=== PATIENT | female | born 1975 | race Caucasian/White ===

== ENCOUNTER 2016-12-05 21:03 | Inpatient (IN) | END 2016-12-10 18:05 | disposition home or self-care (01) | DRG 354 | DX: K43.6 Other and unspecified ventral hernia with obstruction, without gangrene (principal); N18.4 Chronic kidney disease, stage 4 (severe); F15.20 Other stimulant dependence, uncomplicated; G25.81 Restless legs syndrome; M06.9 Rheumatoid arthritis, unspecified; E66.9 Obesity, unspecified; F41.9 Anxiety disorder, unspecified; F32.9 Major depressive disorder, single episode, unspecified; F14.10 Cocaine abuse, uncomplicated; F10.10 Alcohol abuse, uncomplicated; F12.20 Cannabis dependence, uncomplicated; Z68.34 Body mass index [BMI] 34.0-34.9, adult; Z59.0 Homelessness; Z98.84 Bariatric surgery status; Z87.440 Personal history of urinary (tract) infections; Z87.442 Personal history of urinary calculi ==

== ENCOUNTER 2016-12-14 15:43 | Emergency (ER) | payer SELFPAY ==
[~2016-12-14] VITALS: Ht 162.6 cm; Wt 95.5 kg
[~2016-12-14 15:43] MED LIST: ACET325T33 PO; ALBU8.5H3 INH; ALPR1TAB7 PO; BICS PO; BUSP10TA2 PO; DOCU-144 PO; GABA300C16 PO; HYDR200T5 PO; IMIT25 PO; LID50L4 MM; Oxycodone/Acetamin (5/325) PO; PRED5 PO; QUET100T PO; QUET25TA26 PO; TAMS-14 PO; VENL150C PO
[2016-12-14 16:05] VITALS: Ht 162.6 cm; Wt 95.5 kg
== END 2016-12-14 21:49 | disposition left against medical advice (07) ==
LOC: E/R 15:43
DX: Z53.21 Procedure and treatment not carried out due to patient leaving prior to being seen by health care provider (principal)

== ENCOUNTER 2017-04-08 09:38 | Inpatient (IN) | payer OTHER ==
[~2017-04-08] VITALS: Ht 160 cm; Wt 84.0 kg
[~2017-04-08 09:38] MED LIST changes: -LID50L4 MM; +LIDO40SO8 MM
[2017-04-08] MEDS ORDERED: morphine 4 MG/ML VIAL IV STA ×2 (10:21→15:35)
[2017-04-08] MEDS ORDERED: ONDANSETRON 4 MG INJ IV STA (10:21)
[2017-04-08] MEDS ORDERED: DIPHENHYDRAMINE 50 MG INJ IV ONE (11:00)
[2017-04-08 11:05] LABS: ADD SCAN DIFF NO
[2017-04-08 11:08] LABS: ADD UMIC YES; BASOPHILS % 0.7 % (0.0-2.0); EOSINOPHILS # 0.1 10^3/ul (0.0-0.5); EOSINOPHILS % 2.4 % (0.0-7.0); HEMATOCRIT 34.7 % (37.0-47.0); MEAN CORPUSCULAR HEMOGLOBIN 27.8 pg (29.0-33.0); MEAN CORPUSCULAR HGB CONC 31.7 g/dl (32.0-37.0); MEAN CORPUSCULAR VOLUME 87.6 fl (82.0-101.0); MEAN PLATELET VOLUME 11.1 fl (7.4-10.4); MONOCYTE # 0.4 10^3/ul (0.3-0.9); NEUTROPHIL # 3.3 10^3/ul (1.6-7.5); NEUTROPHILS % 56.7 % (39.0-77.0); PLATELET COUNT 316 10^3/UL (140-415); RED BLOOD COUNT 3.96 10^6/ul (4.20-5.40); RED CELL DISTRIBUTION WIDTH 14.7 % (11.5-14.5); UR BILIRUBIN (Dip) NEGATIVE (NEGATIVE); UR BLOOD (Dip) 1+ (NEGATIVE); UR CLARITY CLEAR (CLEAR); UR COLOR LT. YELLOW (YELLOW); UR GLUCOSE (Dip) NEGATIVE (NEGATIVE); UR KETONES (Dip) NEGATIVE (NEGATIVE); UR LEUKOCYTE ESTERASE (Dip) 2+ (NEGATIVE); UR NITRITE (Dip) NEGATIVE (NEGATIVE); UR TOTAL PROTEIN (Dip) NEGATIVE (NEGATIVE); UR UROBILINOGEN (Dip) 0.2 E.U./dL (0.1-1.0); WHITE BLOOD COUNT 5.8 10^3/ul (4.8-10.8)
[2017-04-08 11:15] LABS: UR BACTERIA MODERATE /HPF (NONE SEEN); UR SQUAMOUS EPITHELIAL CELL OCCASIONAL /HPF (FEW); URINE RBCS 0-2 /HPF (0)
--- NOTE | 2017-04-08 11:22 | RADRPT ---
PROCEDURE: XR Chest AP portable CLINICAL INDICATION: Short of breath TECHNIQUE: An AP portable radiograph of the chest was submitted. COMPARISON: 12/22/2015 FINDINGS: Support Hardware: None Cardiovascular: The cardiovascular silhouette appears unremarkable. Lung Baron: The lung baron appear clear with no nodule, alveolar infiltrate, or interstitial promi nence evident. Pleural Spaces: No pneumothorax or pleural effusion is identified. Osseous Structures: The osseous structures appear intact. Soft Tissues: The soft tissues appear generous. IMPRESSION: Stable and unremarkable portable chest. Physician Melinda Date Time Electronically viewed and signed by Physician Melinda on 04/08/2017 11:21 /
--- NOTE | 2017-04-08 11:23 | RADRPT ---
PROCEDURE: XR Left Hip CLINICAL INDICATION: Pain, history of RA TECHNIQUE: AP and frog-leg views were submitted. COMPARISON: None FINDINGS: Osseous structures: appear well mineralized and intact with no fracture or destructive process iden tified. Joint spaces: The hip joint is well maintained there is no distension of the joint capsule. Soft tissues: appear unremarkable. IMPRESSION: Unremarkable left hip. Physician Melinda Date Time Electronically viewed and signed by Sharon Cobb Physician on 04/08/2017 11:22 /
[2017-04-08 11:25] LABS: ALBUMIN 4.1 g/dl (3.3-4.9); ALBUMIN/GLOBULIN RATIO 1.24; CALCIUM 8.3 mg/dl (8.4-10.2); CREATININE 3.48 mg/dl (0.44-1.00); POTASSIUM 4.6 mmol/L (3.5-5.1); TOTAL PROTEIN 7.4 g/dl (6.1-8.1)
[2017-04-08] MEDS ORDERED: SOD CHLORIDE 0.9% 1,000 ML IV ONE ×2 (11:56→14:00)
[2017-04-08] MEDS ORDERED: CEFTRIAXONE 1 GM/50 ML (PMX) 50 ML IVPB ONE (12:00)
[2017-04-08] MEDS ORDERED: FENTAnyl 50 MCG/ML VIAL IV ONE (12:30)
--- NOTE | 2017-04-08 16:16 | RADRPT ---
PROCEDURE: CT Abdomen and Pelvis without contrast. CLINICAL INDICATION: Abdominal and pelvic pain. Left hip pain. TECHNIQUE: CT scan of the abdomen and pelvis without contrast was performed. Coronal and sagittal reformatted images were obtained from the axial source images. Images were reviewed on a high-resolu [employer] PACS workstation. Total exam DLP is 991.48 mGy-cm. CTDIvol is 17.87 mGy. One or more of the f ollowing dose reduction techniques were used: Automated exposure control, adjustment of the mA and/o r kV according to patient size, use of iterative reconstruction technique. COMPARISON: CT scan of the abdomen and pelvis dated 06/15/2016. FINDINGS: The lung bases are normal. There is no pleural effusion. The liver is normal in size and attenuation. There is no focal hepatic lesion. The gallbladder is surgically absent with clips noted in the gallbladder bed. Surgical clips are al so present from prior gastric surgery and prior left upper quadrant bowel surgery. The spleen is normal in size. There is no focal splenic lesion. Both adrenals are normal with no enlargement or mass. The pancreas is unremarkable with no mass or evidence of pancreatitis. Both kidneys are atrophic. There is no renal mass, hydronephrosis, or calculus. The abdominal aorta is not dilated. There is no retroperitoneal lymphadenopathy or mass. There is no pelvic lymphadenopathy or mass. The bladder and distal ureters are normal. There is no free fluid or free air. The bowel and mesentery are otherwise normal. The appendix is well seen and appears normal. There is diffuse sclerosis throughout the osseous structures which may indicate renal osteodystrophy . IMPRESSION: 1. Status post cholecystectomy. 2. Prior gastric and left upper quadrant bowel surgery. 3. Atrophic kidneys. 4. Possible renal osteodystrophy. 5. Otherwise unremarkable study. RPTAT: QQ .Travis Berrios MD, MD Date Time Electronically viewed and signed by .Travis Berrios MD, on 04/08/2017 16:16 .R/
[2017-04-08 17:04] VITALS: PULSE 62; TEMP 98.6
[2017-04-08] MEDS ORDERED: HYDROCODONE/APAP (5/325) TAB PO ONE (17:30)
[2017-04-08] MEDS ORDERED: ONDANSETRON 4 MG INJ IV PRN (17:30)
[2017-04-08] MEDS ORDERED: ACETAMINOPHEN 325 MG TAB PO PRN (17:30)
--- NOTE | 2017-04-08 18:17 | ERA ---
ER Documentation Chief Complaint Date/Time DATE: 04/08/17 TIME: 18:09 Chief Complaint ABD PAIN WITH GENERALIZED BODY PAIN HPI This 41-year-old female comes in for abdominal pain for the last 2 days ago she has chronic abdominal pain as well. She requests very strong pain medicine. Had chills but denies fevers. Does have nausea. Has a history of gastric bypass surgery as well as a recent small bowel obstruction. ROS All systems reviewed and are negative except as per history of present illness. Medications Home Meds Active Scripts [Oxycodone/Acetamin (5/325)] 1 TAB TAB No Conflict Check, 1 TAB PO Q4H Y for PAIN, #30 Prov:ELPIDIO ECKERT 12/10/16 Acetaminophen* (Tylenol*) 325 Mg Tablet, 2 TAB PO Q8 Y for PAIN AND OR ELEVATED TEMP, #20 TAB Prov:NATHEN SOLORIO MD 08/17/16 Docusate Sodium* (Colace*) 100 Mg Capsule, 100 MG PO BID, #30 CAP Prov:MINE KATZ 06/15/16 Reported Medications Lidocaine 4% Topical (Lidocaine HCl) 4%-50 Ml Soln, 1 APPLIC MM, BOT 12/06/16 Quetiapine Fumarate* (Seroquel*) 100 Mg Tablet, 100 MG PO HS, #30 TAB 12/06/16 Quetiapine Fumarate* (Seroquel*) 25 Mg Tablet, 25 MG PO DAILY Y for ANXIETY, # 30 TAB 12/06/16 Buspirone Hcl* (Buspirone Hcl*) 10 Mg Tab, 10 MG PO BID, TAB 12/06/16 Tamsulosin Hcl* (Flomax*) 0.4 Mg Cap.er.24h, 0.2 MG PO DAILY, CAP 12/06/16 Prednisone* (Prednisone*) 5 Mg Tab, 5 MG PO DAILY, TAB 12/06/16 Sumatriptan Succinate* (Imitrex*) 25 Mg Tablet, 25 MG PO BID Y for MIGRAINE HEADACHE, TAB May repeat after 2 hours if needed; MAX 200 mg/24 hours 06/03/16 Venlafaxine Hcl* (Effexor XR*) 150 Mg Cap.sr.24h, 150 MG PO DAILY, CAP 06/03/16 Gabapentin* (Gabapentin*) 300 Mg Capsule, 300 MG PO BID, #60 CAP 06/03/16 Alprazolam* (Alprazolam*) 1 Mg Tablet, 1 MG PO BID Y for ANXIETY, TAB 06/03/16 Hydroxychloroquine Sulfate* (Plaquenil*) 200 Mg Tab, 200 MG PO DAILY, TAB 02/20/15 Citric Acid/Sodium Citrate* (Bicitra* (PEDIATRIC)) 1 Meq/Ml Soln, 30 MEQ PO BID for 30 Days, BOTTLE 02/20/15 Albuterol Sulfate* (Proair HFA*) 8.5 Gm Hfa.aer.ad, 2 PUFF INH Q4-6 HOURS Y for WHEEZING AND SOB, INH 02/20/15 Allergies Allergies: Coded Allergies: No Known Allergies (Verified Allergy, Unknown, 08/17/16) PMhx/Soc History of Surgery: Yes (; gastric bypass; bladder Sx; lithotripsy) Anesthesia Reaction: No Hx Neurological Disorder: Yes (anxiety, panic attack, depression) Hx Respiratory Disorders: Yes (ASTHMA) Hx Cardiac Disorders: No (tachycardia when stressed) Hx Psychiatric Problems: Yes (depression) Hx Miscellaneous Medical Probl: Yes (RHEUMATOID ARTHRITIS) Hx Alcohol Use: No Hx Substance Use: Yes (CANNABIS) Hx Tobacco Use: No Smoking Status: Never smoker Physical Exam Vitals Vital Signs Date Time Temp Pulse Resp B/P Pulse Ox O2 Delivery O2 Flow Rate FiO2 04/08/17 17:04 98.6 62 18 141/86 99 04/08/17 15:04 98.9 68 18 146/80 99 04/08/17 09:39 98.9 102 18 149/88 99 Physical Exam Const: [] Mild distress Head: Atraumatic Eyes: Normal Conjunctiva ENT: Normal External Ears, Nose and Mouth. Neck: Full range of motion..~ No meningismus. Resp: Clear to auscultation bilaterally Cardio: Regular rate and rhythm, no murmurs Abd: Soft, mild generalized abdominal pain without guarding or rebound, non distended. Normal bowel sounds Skin: No petechiae or rashes Back: No midline or flank tenderness Ext: No cyanosis, or edema Neur: Awake and alert and oriented 3, no focal depth Psych: Normal Mood and Affect Result Diagram: 04/08/17 1040 04/08/17 1040 Results 24 hrs Laboratory Tests Test 04/08/17 10:40 White Blood Count 5.810^3/ul Red Blood Count 3.9610^6/ul Hemoglobin 11.0g/dl Hematocrit 34.7% Mean Corpuscular Volume 87.6fl Mean Corpuscular Hemoglobin 27.8pg Mean Corpuscular Hemoglobin Concent 31.7g/dl Red Cell Distribution Width 14.7% Platelet Count 85369^3/UL Mean Platelet Volume 11.1fl Neutrophils % 56.7% Lymphocytes % 34.0% Monocytes % 6.0% Eosinophils % 2.4% Basophils % 0.7% Nucleated Red Blood Cells % 0.0/100WBC Neutrophils # 3.310^3/ul Lymphocytes # 2.010^3/ul Monocytes # 0.410^3/ul Eosinophils # 0.110^3/ul Basophils # 0.010^3/ul Nucleated Red Blood Cells # 0.010^3/ul Urine Color LT. YELLOW Urine Clarity CLEAR Urine pH 5.5 Urine Specific [place] <=1.005 Urine Ketones NEGATIVE Urine Nitrite NEGATIVE Urine Bilirubin NEGATIVE Urine Urobilinogen 0.2 E.U./dL Urine Leukocyte Esterase 2+ Urine Microscopic RBC 0-2/HPF Urine Microscopic WBC 5-10/HPF Urine Squamous Epithelial Cells OCCASIONAL/HPF Urine Bacteria MODERATE/HPF Urine Hemoglobin 1+ Urine Glucose NEGATIVE% Urine Total Protein NEGATIVE Sodium Level 145mmol/L Potassium Level 4.6mmol/L Chloride Level 112mmol/L Carbon Dioxide Level 18mmol/L Anion Gap 20 Blood Urea Nitrogen 32mg/dl Creatinine 3.48mg/dl Glucose Level 75mg/dl Calcium Level 8.3mg/dl Total Bilirubin 0.0mg/dl Direct Bilirubin 0.00mg/dl Indirect Bilirubin 0.0mg/dl Aspartate Amino Transf (AST/SGOT) 29IU/L Alanine Aminotransferase (ALT/SGPT) 33IU/L Alkaline Phosphatase 158IU/L Total Protein 7.4g/dl Albumin 4.1g/dl Globulin 3.30g/dl Albumin/Globulin Ratio 1.24 Lipase 141U/L Current Medications Medications (Trade) Dose Ordered Sig/Brian Route PRN Reason Start Time Stop Time Status Last Admin Dose Admin Morphine Sulfate (morphine) 4 mg ONCE STAT IV 04/08/17 10:21 04/08/17 10:25 DC 04/08/17 10:47 Ondansetron HCl (Zofran Inj) 4 mg ONCE STAT IV 04/08/17 10:21 04/08/17 10:25 DC 04/08/17 10:47 Diphenhydramine HCl 25 mg 25 mg ONCE ONCE IV 04/08/17 11:00 04/08/17 11:01 DC 04/08/17 11:13 Ceftriaxone Sodium 50 ml @ 100 mls/hr ONCE ONCE IVPB 04/08/17 12:00 04/08/17 12:29 DC 04/08/17 12:00 Sodium Chloride (NS) 1,000 ml @ 0 mls/hr Q0M ONCE IV 04/08/17 11:56 04/08/17 11:57 DC 04/08/17 11:56 Fentanyl 50 mcg 50 mcg ONCE ONCE IV 04/08/17 12:30 04/08/17 12:31 DC 04/08/17 13:02 Sodium Chloride (NS) 1,000 ml @ 1,000 mls/hr Q1H ONCE IV 04/08/17 14:00 04/08/17 14:59 DC 04/08/17 14:40 Morphine Sulfate (morphine) 4 mg ONCE STAT IV 04/08/17 15:35 04/08/17 15:36 DC 04/08/17 15:54 Acetaminophen/ Hydrocodone Bitart (Immaculata (5/325)) 2 tab ONCE ONCE PO 04/08/17 17:30 04/08/17 17:31 DC 04/08/17 17:46 Ondansetron HCl (Zofran Inj) 4 mg BRIDGE ORDER PRN IV NAUSEA AND/OR VOMITING 04/08/17 17:30 04/09/17 17:29 04/08/17 17:47 Acetaminophen (Tylenol Tab) 650 mg ER BRIDGE PRN PO MILD PAIN/FEVER 04/08/17 17:30 04/09/17 17:29 Procedures/MDM Acute kidney injury on top of chronic renal failure with urinary tract infection and abdominal pain. Do believe she may have a narcotic dependence that she would say that each dose of narcotic pain medication wore off a few minutes after it was given and she would require more. Appears completely comfortable in the room. Do believe she is to be admitted for protection of her kidneys as her previous creatinine even during small bowel obstruction was approximately 2.6 baseline is now 3.5 in order to protect her kidneys from complete renal failure I think she should be admitted for fluid hydration, treatment of UTI, and nephrology consult. She was given a gram of Rocephin in the emergency room and urine culture was taken to spoke with Dr. Bullock who admitting the patient to the medical surgical floor. CT abdomen pelvis interpretation: No definite acute process. Patient does have renal stones and atrophic kidneys, evidence of gastric bypass. I see no obstruction, no free air, no abnormal fat stranding, no fractures Departure Diagnosis: Primary Impression: Acute on chronic renal failure Additional Impression: Urinary tract infection Condition: Stable SONIA DEAN DO Apr 08, 2017 18:17
[2017-04-08 18:38] VITALS: BP 144/84; RESP 20
--- NOTE | 2017-04-08 19:15 | HP ---
Date/Time of Note Date/Time of Note DATE: 04/08/17 TIME: 19:14 Assessment/Plan VTE Prophylaxis VTE Prophylaxis Intervention: SCD's Assessment/Plan Assessment/Plan 41 yo F with right-sided abdominal pain asking for stronger pain medications with the followin. Possible right-sided pyelonephritis likely mild 2. Acute on chronic kidney disease stage III 3. Pain medication seeking behavior, with patient asking for stronger opioids by name, wanting pain medication mixed with intravenous Benadryl 4. History of chronic kidney disease stage III to IV. 5. History of prior urinary tract infections. 6. Prior history of kidney stones. 7. History of IV drug abuse in the past. 8. Restless leg syndrome. 9. History of rheumatoid arthritis. PLAN: Patient is being mainly admitted for management of her renal failure with hydration and empiric antibiotics. We will also send a urine culture. Patient is being treated with non narcotic IV pain meds as continued on her home percocet. Patient is refusing IV pain meds because they are non narcotic. Patient does not clinically look uncomfortable. If pain mgt remains an issue, she will benefit from pain mgt consult. Further interventions per clinical course Continue all other supportive care Prophylaxis: SCDS / Pepcid HPI/ROS Admit Date/Time Admit Date/Time Apr 08, 2017 at 17:31 Hx of Present Illness PRESENTING COMPLAINT: R sided abd pain HISTORY OF PRESENTING COMPLAINT:This is a 41-year-old female with a past medical history of chronic kidney disease stage III, illicit drug use, who presents to the emergency room with complaints of right-sided abdominal pain as well as a left hip pain. The patient has also had multiple urinary tract infection in the past I was concerned that she might have another. She has had no fever, no chest pain, no shortness of breath, no palpitations. There has been no passing out episodes, no headaches, no visual changes, no sore throat. ROS 12 point review if systems was done and pertinent findings are as noted. PMH/Family/Social Past Medical History History of chronic kidney disease stage III to IV. History of prior urinary tract infections. Prior history of kidney stones. History of IV drug abuse in the past. Restless leg syndrome. History of rheumatoid arthritis. Past Surgical History * Gastric bypass * multiple lithotripsises Family History Significant Family History: no pertinent family hx Social History Smoking Status: Never smoker Exam/Review of Systems Vital Signs Vitals VS - Last 72 Hours, by Label Date Time Temp Pulse Resp B/P Pulse Ox O2 Delivery O2 Flow Rate FiO2 04/09/17 07:35 97.6 69 18 127/68 99 04/09/17 02:00 97.7 59 18 111/66 100 04/08/17 20:11 98.0 65 18 130/81 100 04/08/17 18:38 97.7 65 20 144/84 99 04/08/17 17:04 98.6 62 18 141/86 99 04/08/17 15:04 98.9 68 18 146/80 99 04/08/17 09:39 98.9 102 18 149/88 99 Vital Signs Date Time Temp Pulse Resp B/P Pulse Ox O2 Delivery O2 Flow Rate FiO2 04/08/17 18:38 97.7 65 20 144/84 99 Exam Exam Constitutional: alert, oriented Head: atraumatic, normocephalic Neck: non-tender, supple Respiratory: clear to auscultation Cardiovascular: regular rate and rhythm Gastrointestinal: S/ NT / ND / +BS /no flank pain or tenderness Extremities: no edema, good radial pulses Labs Result Diagram: 04/08/17 1040 04/08/17 1040 Procedures Procedures PROCEDURE: CT Abdomen and Pelvis without contrast. CLINICAL INDICATION: Abdominal and pelvic pain. Left hip pain. TECHNIQUE: CT scan of the abdomen and pelvis without contrast was performed. Coronal and sagittal reformatted images were obtained from the axial source images. Images were reviewed on a high-resolution PACS workstation. Total exam DLP is 991.48 mGy-cm. CTDIvol is 17.87 mGy. One or more of the following dose reduction techniques were used: Automated exposure control, adjustment of the mA and/or kV according to patient size, use of iterative reconstruction technique. COMPARISON: CT scan of the abdomen and pelvis dated 06/15/2016. FINDINGS: The lung bases are normal. There is no pleural effusion. The liver is normal in size and attenuation. There is no focal hepatic lesion. The gallbladder is surgically absent with clips noted in the gallbladder bed. Surgical clips are also present from prior gastric surgery and prior left upper quadrant bowel surgery. The spleen is normal in size. There is no focal splenic lesion. Both adrenals are normal with no enlargement or mass. The pancreas is unremarkable with no mass or evidence of pancreatitis. Both kidneys are atrophic. There is no renal mass, hydronephrosis, or calculus. The abdominal aorta is not dilated. There is no retroperitoneal lymphadenopathy or mass. There is no pelvic lymphadenopathy or mass. The bladder and distal ureters are normal. There is no free fluid or free air. The bowel and mesentery are otherwise normal. The appendix is well seen and appears normal. There is diffuse sclerosis throughout the osseous structures which may indicate renal osteodystrophy. IMPRESSION: 1. Status post cholecystectomy. 2. Prior gastric and left upper quadrant bowel surgery. 3. Atrophic kidneys. 4. Possible renal osteodystrophy. 5. Otherwise unremarkable study. RPTAT: QQ .Travis Berrios MD, MD Date Time Electronically viewed and signed by .Travis Berrios MD, MD on 04/08/2017 16:16 .R/ PROCEDURE: XR Chest AP portable CLINICAL INDICATION: Short of breath TECHNIQUE: An AP portable radiograph of the chest was submitted. COMPARISON: 12/22/2015 FINDINGS: Support Hardware: None Cardiovascular: The cardiovascular silhouette appears unremarkable. Lung Morrison: The lung morrison appear clear with no nodule, alveolar infiltrate, or interstitial prominence evident. Pleural Spaces: No pneumothorax or pleural effusion is identified. Osseous Structures: The osseous structures appear intact. Soft Tissues: The soft tissues appear generous. IMPRESSION: Stable and unremarkable portable chest. Physician Melnida Date Time Electronically viewed and signed by Sharon Cobb Physician on 04/08/2017 11:21 MONSE FRIAS Apr 08, 2017 19:15
[2017-04-08 19:30] VITALS: Ht 160 cm; Wt 84.0 kg
[2017-04-08] MEDS ORDERED: OXYCODONE/ACETAMINOPHEN (5/325) TAB PO PRN (19:30)
[2017-04-08] MEDS ORDERED: hydrOXYzine HCL 25 MG TAB PO PRN ×2 (19:30→21:00)
[2017-04-08] MEDS ORDERED: ALPRAZOLAM 1 MG TAB PO PRN (19:30)
[2017-04-08] MEDS ORDERED: ALBUTEROL 18 GM INHALER INH PRN (19:30)
[2017-04-08] MEDS ORDERED: SUMATRIPTAN 25 MG TAB PO PRN (19:30)
[2017-04-08 20:11] VITALS: BP 130/81; RESP 18
[2017-04-08] MEDS ORDERED: ACETAMINOPHEN 1000MG/100ML IV 100 ML IVPB SCH (21:00)
[2017-04-08] MEDS ORDERED: BUSPIRONE 10 MG TAB PO SCH ×2 (21:00)
[2017-04-08] MEDS ORDERED: CITRIC ACID/NA CITRATE 30 ML CUP PO SCH (21:00)
[2017-04-08] MEDS ORDERED: TAMSULOSIN (SR) 0.4 MG CAP PO SCH (21:00)
[2017-04-08] MEDS ORDERED: GABAPENTIN 300 MG CAP PO SCH (21:00)
[2017-04-08] MEDS ORDERED: QUETIAPINE 100 MG TAB PO SCH (21:00)
[2017-04-08] MEDS ORDERED: DOCUSATE SODIUM 100 MG CAP PO SCH (21:00)
[2017-04-08] MEDS ORDERED: LIDOCAINE 5% 35 GM OINT TOP PRN (21:00)
[2017-04-08] MEDS ORDERED: morphine 2 MG INJ IV PRN (21:00)
[2017-04-08] MEDS ORDERED: OXYCODONE/ACETAMINOPHEN (10/325) TAB PO PRN (23:30)
[2017-04-08] MEDS ORDERED: HYDROCORTISONE 1% 28.35 GM OINT TOP PRN (23:30)
[2017-04-09 02:00] VITALS: BP 111/66; RESP 18
[2017-04-09] MEDS ORDERED: CEPH-442 PO (04:33)
[2017-04-09] MEDS ORDERED: SODI650T PO (04:33)
[2017-04-09] MEDS ORDERED: UDATA PO (04:33)
[2017-04-09] MEDS ORDERED: OXYC-209 PO (04:33)
[2017-04-09 07:35] VITALS: BP 127/68; RESP 18
[2017-04-09] MEDS ORDERED: SOD CHLORIDE 0.9% 1,000 ML IV SCH (09:00)
[2017-04-09] MEDS ORDERED: HYDROXYCHLOROQUINE 200 MG TAB PO SCH (09:00)
[2017-04-09] MEDS ORDERED: VENLAFAXINE (XR) 75 MG CAP PO SCH (09:00)
[2017-04-09] MEDS ORDERED: predniSONE 5 MG TAB PO SCH (09:00)
--- NOTE | 2017-04-09 09:46 | DS ---
Date/Time of Note Date/Time of Note DATE: 04/09/17 TIME: 09:43 Discharge Summary Admission/Discharge Info Admit Date/Time Apr 08, 2017 at 17:31 Discharge Date/Time Patient Condition: Guarded Hx of Present Illness PRESENTING COMPLAINT: R sided abd pain HISTORY OF PRESENTING COMPLAINT:This is a 41-year-old female with a past medical history of chronic kidney disease stage III, illicit drug use, who presents to the emergency room with complaints of right-sided abdominal pain as well as a left hip pain. The patient has also had multiple urinary tract infection in the past I was concerned that she might have another. She has had no fever, no chest pain, no shortness of breath, no palpitations. There has been no passing out episodes, no headaches, no visual changes, no sore throat. Hospital Course Pt admitted for abd pain 2/2 possible UTI v pyelo, started on empiric rocepin while cultures in process. Pt demanded IV narcotics. When offered multiple alternatives including PO narcotics, topical lidocaine, pt eloped. I did not have the opportunity to review risks of leaving without completion of workup ( mainly identification of pathogen in pt's urine) or arrange for any post discharge f/u as I was notified of pt's elopement after she had already departed Home Meds Active Scripts Acetaminophen* (Tylenol*) 325 Mg Tablet, 2 TAB PO Q8 Y for PAIN AND OR ELEVATED TEMP, #20 TAB Prov:NATHEN SOLORIO MD 08/17/16 Reported Medications Hydroxyzine Hcl* (Atarax*) 2 Mg/Ml Syrup, 25 MG PO Q4 Y for ITCHING, ML 04/09/17 Cephalexin* (Keflex*) 250 Mg Capsule, 250 MG PO DAILY, #28 CAP 04/09/17 Sodium Bicarbonate (Na Bicarbonate) 650 Mg Tab, 650 MG PO BID, #4 TAB 04/09/17 Oxycodone HCl/Acetaminophen (Percocet 10-325 mg Tablet) 1 Each Tablet, 1 EACH PO Q4 for PAIN, TAB 04/09/17 Lidocaine 4% Topical (Lidocaine HCl) 4%-50 Ml Soln, 1 APPLIC MM, BOT 12/06/16 Quetiapine Fumarate* (Seroquel*) 100 Mg Tablet, 100 MG PO HS, #30 TAB 3/14/17 Buspirone Hcl* (Buspirone Hcl*) 10 Mg Tab, 10 MG PO TID, TAB 12/06/16 Prednisone* (Prednisone*) 5 Mg Tab, 5 MG PO DAILY, TAB 12/06/16 Venlafaxine Hcl* (Effexor XR*) 150 Mg Cap.sr.24h, 150 MG PO DAILY, CAP 06/03/16 Hydroxychloroquine Sulfate* (Plaquenil*) 200 Mg Tab, 200 MG PO DAILY, TAB 02/20/15 Albuterol Sulfate* (Proair HFA*) 8.5 Gm Hfa.aer.ad, 2 PUFF INH Q4-6 HOURS Y for WHEEZING AND SOB, INH 02/20/15 Discontinued Reported Medications Quetiapine Fumarate* (Seroquel*) 25 Mg Tablet, 25 MG PO DAILY Y for ANXIETY, # 30 TAB 12/06/16 Tamsulosin Hcl* (Flomax*) 0.4 Mg Cap.er.24h, 0.2 MG PO DAILY, CAP 12/06/16 Gabapentin* (Gabapentin*) 300 Mg Capsule, 300 MG PO BID, #60 CAP 06/03/16 Alprazolam* (Alprazolam*) 1 Mg Tablet, 1 MG PO BID Y for ANXIETY, TAB 06/03/16 Citric Acid/Sodium Citrate* (Bicitra* (PEDIATRIC)) 1 Meq/Ml Soln, 30 MEQ PO BID for 30 Days, BOTTLE 02/20/15 Sumatriptan Succinate* (Imitrex*) 25 Mg Tablet, 25 MG PO BID Y for MIGRAINE HEADACHE, TAB May repeat after 2 hours if needed; MAX 200 mg/24 hours 06/03/16 Discontinued Scripts [Oxycodone/Acetamin (5)] 1 TAB TAB No Conflict Check, 1 TAB PO Q4H Y for PAIN, #30 Prov:ELPIDIO ECKERT 12/10/16 Docusate Sodium* (Colace*) 100 Mg Capsule, 100 MG PO BID, #30 CAP Prov:MINE KATZ 06/15/16 Primary Care Provider Not On Staff Doctor Pending Labs Laboratory Tests Test 04/08/17 10:40 White Blood Count 5.810^3/ul (4.8-10.8) Red Blood Count 3.9610^6/ul (4.20-5.40) Hemoglobin 11.0g/dl (12.0-16.0) Hematocrit 34.7% (37.0-47.0) Mean Corpuscular Volume 87.6fl (82.0-101.0) Mean Corpuscular Hemoglobin 27.8pg (29.0-33.0) Mean Corpuscular Hemoglobin Concent 31.7g/dl (32.0-37.0) Red Cell Distribution Width 14.7% (11.5-14.5) Platelet Count 56267^3/UL (140-415) Mean Platelet Volume 11.1fl (7.4-10.4) Neutrophils % 56.7% (39.0-77.0) Lymphocytes % 34.0% (15.0-51.0) Monocytes % 6.0% (0.0-11.0) Eosinophils % 2.4% (0.0-7.0) Basophils % 0.7% (0.0-2.0) Nucleated Red Blood Cells % 0.0/100WBC (0.0-0.0) Neutrophils # 3.310^3/ul (1.6-7.5) Lymphocytes # 2.010^3/ul (0.8-2.9) Monocytes # 0.410^3/ul (0.3-0.9) Eosinophils # 0.110^3/ul (0.0-0.5) Basophils # 0.010^3/ul (0.0-0.1) Nucleated Red Blood Cells # 0.010^3/ul (0.0-0.0) Urine Color LT. YELLOW (YELLOW) Urine Clarity CLEAR (CLEAR) Urine pH 5.5 (5.0-9.0) Urine Specific [place] <=1.005 (1.003-1.030) Urine Ketones NEGATIVE (NEGATIVE) Urine Nitrite NEGATIVE (NEGATIVE) Urine Bilirubin NEGATIVE (NEGATIVE) Urine Urobilinogen 0.2 E.U./dL (0.1-1.0) Urine Leukocyte Esterase 2+ (NEGATIVE) Urine Microscopic RBC 0-2/HPF (0) Urine Microscopic WBC 5-10/HPF (0) Urine Squamous Epithelial Cells OCCASIONAL/HPF (FEW) Urine Bacteria MODERATE/HPF (NONE SEEN) Urine Hemoglobin 1+ (NEGATIVE) Urine Glucose NEGATIVE% (NEGATIVE) Urine Total Protein NEGATIVE (NEGATIVE) Sodium Level 145mmol/L (135-144) Potassium Level 4.6mmol/L (3.5-5.1) Chloride Level 112mmol/L (97-110) Carbon Dioxide Level 18mmol/L (21-31) Anion Gap 20 (8-16) Blood Urea Nitrogen 32mg/dl (7-20) Creatinine 3.48mg/dl (0.44-1.00) Glucose Level 75mg/dl (70-220) Calcium Level 8.3mg/dl (8.4-10.2) Total Bilirubin 0.0mg/dl (0.2-1.3) Direct Bilirubin 0.00mg/dl (0.00-0.20) Indirect Bilirubin 0.0mg/dl (0-1.1) Aspartate Amino Transf (AST/SGOT) 29IU/L (15-46) Alanine Aminotransferase (ALT/SGPT) 33IU/L (13-69) Alkaline Phosphatase 158IU/L (42-121) Total Protein 7.4g/dl (6.1-8.1) Albumin 4.1g/dl (3.3-4.9) Globulin 3.30g/dl (1.3-3.2) Albumin/Globulin Ratio 1.24 Lipase 141U/L (23-300) CALE LILLY MD Apr 09, 2017 09:45
[2017-04-09] MEDS ORDERED: LIDOCAINE 5% PATCH TD SCH (10:00)
[2017-04-09] MEDS ORDERED: CEFTRIAXONE 1 GM/50 ML (PMX) 50 ML IVPB SCH (11:00)
== END 2017-04-09 09:45 | disposition left against medical advice (07) | DRG 392 ==
LOC: FTE 09:38 → MS2 17:31
PROVIDERS: ADMIT Family Medicine; ATTEND Family Medicine
DX: R10.9 Unspecified abdominal pain (principal); N17.9 Acute kidney failure, unspecified; N18.3 Chronic kidney disease, stage 3 (moderate); Z87.440 Personal history of urinary (tract) infections; Z87.442 Personal history of urinary calculi; G25.81 Restless legs syndrome; M06.9 Rheumatoid arthritis, unspecified; Z76.5 Malingerer [conscious simulation]
CPT/HCPCS: 36415; 71010; 73510; 74176; 80053; 81001; 83690; 85025; 87086; 96374; 96375; 96376; J0131; J0696; J1200; J2270; J2405; J3010; J7030; J7512

== ENCOUNTER 2017-06-19 00:40 | Emergency (ER) | payer OTHER ==
[~2017-06-19] VITALS: Ht 160 cm; Wt 80.0 kg
[~2017-06-19 00:40] MED LIST changes: -ALPR1TAB7 PO; -BICS PO; +CEPH-442 PO; -DOCU-144 PO; -GABA300C16 PO; -IMIT25 PO; +OXYC-209 PO; -Oxycodone/Acetamin (5/325) PO; -PRED5 PO; +PRED5TAB PO; -QUET25TA26 PO; +SODI650T PO; -TAMS-14 PO; +UDATA PO
[2017-06-19 00:47] VITALS: Ht 160 cm; Wt 80.0 kg
[2017-06-19] MEDS ORDERED: SOD CHLORIDE 0.9% 500 ML IV STA (01:06)
[2017-06-19] MEDS ORDERED: ONDANSETRON 4 MG INJ IV STA (01:06)
[2017-06-19] MEDS ORDERED: HYDROmorphONE 1 MG/ML SYG IV STA ×2 (01:06→05:48)
[2017-06-19 01:44] LABS: BASOPHIL # 0.1 10^3/ul (0.0-0.1); BASOPHILS % 0.8 % (0.0-2.0); EOSINOPHILS # 0.5 10^3/ul (0.0-0.5); EOSINOPHILS % 5.3 % (0.0-7.0); HEMATOCRIT 38.8 % (37.0-47.0); HEMOGLOBIN 12.2 g/dl (12.0-16.0); LYMPHOCYTES # 2.9 10^3/ul (0.8-2.9); LYMPHOCYTES % 32.3 % (15.0-51.0); MEAN CORPUSCULAR HEMOGLOBIN 27.6 pg (29.0-33.0); MEAN CORPUSCULAR HGB CONC 31.4 g/dl (32.0-37.0); MEAN CORPUSCULAR VOLUME 87.8 fl (82.0-101.0); MEAN PLATELET VOLUME 10.9 fl (7.4-10.4); MONOCYTE # 0.6 10^3/ul (0.3-0.9); MONOCYTES % 6.1 % (0.0-11.0); NEUTROPHILS % 55.3 % (39.0-77.0); PLATELET COUNT 301 10^3/UL (140-415); RED BLOOD COUNT 4.42 10^6/ul (4.20-5.40); RED CELL DISTRIBUTION WIDTH 15.8 % (11.5-14.5)
[2017-06-19 01:52] LABS: ADD UMIC YES; UR ASCORBIC ACID NEGATIVE (NEGATIVE); UR BILIRUBIN (Dip) NEGATIVE (NEGATIVE); UR BLOOD (Dip) NEGATIVE (NEGATIVE); UR CLARITY CLEAR (CLEAR); UR COLOR COLORLESS (YELLOW); UR GLUCOSE (Dip) NEGATIVE (NEGATIVE); UR KETONES (Dip) NEGATIVE (NEGATIVE); UR LEUKOCYTE ESTERASE (Dip) 1+ Leu/ul (NEGATIVE); UR NITRITE (Dip) NEGATIVE (NEGATIVE); UR RBC 0 /HPF (0-5); UR SPECIFIC GRAVITY (Dip) 1.003 (1.003-1.030); UR TOTAL PROTEIN (Dip) NEGATIVE (NEGATIVE); UR UROBILINOGEN (Dip) NEGATIVE (NEGATIVE)
[2017-06-19 02:02] LABS: ALBUMIN 3.9 g/dl (3.3-4.9); ALBUMIN/GLOBULIN RATIO 1.05; CALCIUM 8.3 mg/dl (8.4-10.2); CREATININE 3.78 mg/dl (0.44-1.00); POTASSIUM 4.5 mmol/L (3.5-5.1); TOTAL PROTEIN 7.6 g/dl (6.1-8.1)
--- NOTE | 2017-06-19 02:58 | RADRPT ---
PROCEDURE: CT abdomen and pelvis without intravenous contrast. CLINICAL INDICATION: Pain. TECHNIQUE: CT of the abdomen/pelvis was performed utilizing axial images with reconstructions in s agittal and coronal planes. The administered radiation dose is CTDI 17 mGy, DLP 945 mGy-cm. One or m ore of the following dose reduction techniques were used: automated exposure control, adjustment of the mA and/or kV according to patient size and/or use of iterative reconstruction technique. COMPARISON: No pertinent prior examinations were submitted for comparison. FINDINGS: Visualized Chest: The visualized lung bases are clear. Abdomen: The liver, spleen, pancreas, and adrenal glands are unremarkable. Prior cholecystectomy is noted. The kidneys are small and atrophic. There is mild bilateral hydronephrosis and hydroureter extending to the level of the ureterovesical portions without definite obstructing calculus. There is a 2 mm nonobstructive calculus within the proximal right ureter. Punctate nonobstructive calculi are noted within both kidneys. Prior gastric bypass surgery is noted. There is no evidence of bowel obstruction. The appendix is no rmal. There is no intra-abdominal free air. There is no evidence of intra-abdominal adenopathy or free fluid. Pelvis: There is no evidence of pelvic adenopathy. The uterus and ovaries are without enlargement. The uri nary bladder is unremarkable. There is no pelvic free fluid. Osseous structures: Unremarkable. IMPRESSION: Mild bilateral hydronephrosis and hydroureter possibly due to bladder distension. No definite obstru cting calculi are seen although there is a 2 mm of high nonobstructive calculus within the proximal right ureter. Recent passage of a calculus or urinary tract infection would not be excluded. Status post gastric bypass without evidence of bowel obstruction. RPTAT: HIKT .Adi Castillo MD, MD Date Time Electronically viewed and signed by .Adi Castillo MD, on 06/19/2017 02:57 .T/
[2017-06-19] MEDS ORDERED: KETOROLAC 30 MG INJ IV STA (03:24)
[2017-06-19 04:30] VITALS: BP 124/81; PULSE 77; RESP 18
--- NOTE | 2017-06-19 05:46 | ERD ---
ER Documentation Chief Complaint Date/Time DATE: 06/19/17 TIME: 05:46 Chief Complaint R sharp abd pain radiating to R flank,hx kidney problems HPI This is a 41-year-old female comes with sharp abdominal pain rating to right flank. Patient has history of kidney problems. No nausea no vomiting no chills. Pain is mild to moderate intensity. No other current complaints. Patient says the pain started 2 days ago. She says it is not getting progressively worse. Pain comes in waves of 15-20 minutes at a time and resolves. Upon medical record review, patient has a long-standing history of narcotic drug-seeking behavior. ROS All systems reviewed and are negative except as per history of present illness. Medications Home Meds Active Scripts Acetaminophen* (Tylenol*) 325 Mg Tablet, 2 TAB PO Q8 Y for PAIN AND OR ELEVATED TEMP, #20 TAB Prov:NATHEN SOLORIO MD 08/17/16 Reported Medications Hydroxyzine Hcl* (Atarax*) 2 Mg/Ml Syrup, 25 MG PO Q4 Y for ITCHING, ML 04/09/17 Cephalexin* (Keflex*) 250 Mg Capsule, 250 MG PO DAILY, #28 CAP 04/09/17 Sodium Bicarbonate (Na Bicarbonate) 650 Mg Tab, 650 MG PO BID, #4 TAB 04/09/17 Oxycodone HCl/Acetaminophen (Percocet 10-325 mg Tablet) 1 Each Tablet, 1 EACH PO Q4 for PAIN, TAB 04/09/17 Lidocaine 4% Topical (Lidocaine HCl) 4%-50 Ml Soln, 1 APPLIC MM, BOT 12/06/16 Quetiapine Fumarate* (Seroquel*) 100 Mg Tablet, 100 MG PO HS, #30 TAB 12/06/16 Buspirone Hcl* (Buspirone Hcl*) 10 Mg Tab, 10 MG PO TID, TAB 12/06/16 Prednisone* (Prednisone*) 5 Mg Tab, 5 MG PO DAILY, TAB 12/06/16 Venlafaxine Hcl* (Effexor XR*) 150 Mg Cap.sr.24h, 150 MG PO DAILY, CAP 06/03/16 Hydroxychloroquine Sulfate* (Plaquenil*) 200 Mg Tab, 200 MG PO DAILY, TAB 02/20/15 Albuterol Sulfate* (Proair HFA*) 8.5 Gm Hfa.aer.ad, 2 PUFF INH Q4-6 HOURS Y for WHEEZING AND SOB, INH 02/20/15 Allergies Allergies: Coded Allergies: morphine (Verified Allergy, Mild, 04/08/17) RAshes PMhx/Soc History of Surgery: Yes (, gastric bypass 10 years ago, bladder repair , multiple lithotrips) Anesthesia Reaction: No Hx Neurological Disorder: No Hx Respiratory Disorders: No Hx Cardiac Disorders: No Hx Psychiatric Problems: Yes (depression, anxiety, panic attacks. hallucinations) Hx Miscellaneous Medical Probl: Yes (CKD, mental issues) Hx Alcohol Use: Yes (occasionaly) Hx Substance Use: Yes (cannabis daily 10 times a day) Hx Tobacco Use: No Smoking Status: Unknown if ever smoked Physical Exam Vitals Vital Signs Date Time Temp Pulse Resp B/P Pulse Ox O2 Delivery O2 Flow Rate FiO2 06/19/17 00:47 98.2 110 18 118/85 100 Physical Exam Const: [] Head: Atraumatic Eyes: Normal Conjunctiva ENT: Normal External Ears, Nose and Mouth. Neck: Full range of motion..~ No meningismus. Resp: Clear to auscultation bilaterally Cardio: Regular rate and rhythm, no murmurs Abd: Soft, non tender, non distended. Normal bowel sounds Skin: No petechiae or rashes Back: No midline or flank tenderness Ext: No cyanosis, or edema Neur: Awake and alert Psych: Normal Mood and Affect Result Diagram: 06/19/1710806/19/17108 Results 24 hrs Laboratory Tests Test 06/19/17 01:09 White Blood Count 9.010^3/ul Red Blood Count 4.4210^6/ul Hemoglobin 12.2g/dl Hematocrit 38.8% Mean Corpuscular Volume 87.8fl Mean Corpuscular Hemoglobin 27.6pg Mean Corpuscular Hemoglobin Concent 31.4g/dl Red Cell Distribution Width 15.8% Platelet Count 21704^3/UL Mean Platelet Volume 10.9fl Neutrophils % 55.3% Lymphocytes % 32.3% Monocytes % 6.1% Eosinophils % 5.3% Basophils % 0.8% Nucleated Red Blood Cells % 0.0/100WBC Neutrophils # 5.010^3/ul Lymphocytes # 2.910^3/ul Monocytes # 0.610^3/ul Eosinophils # 0.510^3/ul Basophils # 0.110^3/ul Nucleated Red Blood Cells # 0.010^3/ul Urine Color COLORLESS Urine Clarity CLEAR Urine pH 7.0 Urine Specific [place] 1.003 Urine Ketones NEGATIVEmg/dL Urine Nitrite NEGATIVEmg/dL Urine Bilirubin NEGATIVEmg/dL Urine Urobilinogen NEGATIVEmg/dL Urine Leukocyte Esterase 1+Marko/ul Urine Microscopic RBC 0/HPF Urine Microscopic WBC 8/HPF Urine Hemoglobin NEGATIVEmg/dL Urine Glucose NEGATIVEmg/dL Urine Total Protein NEGATIVEmg/dl Sodium Level 139mmol/L Potassium Level 4.5mmol/L Chloride Level 111mmol/L Carbon Dioxide Level 21mmol/L Anion Gap 12 Blood Urea Nitrogen 30mg/dl Creatinine 3.78mg/dl Glucose Level 68mg/dl Calcium Level 8.3mg/dl Total Bilirubin 0.0mg/dl Direct Bilirubin 0.00mg/dl Indirect Bilirubin 0.0mg/dl Aspartate Amino Transf (AST/SGOT) 27IU/L Alanine Aminotransferase (ALT/SGPT) 25IU/L Alkaline Phosphatase 189IU/L Total Protein 7.6g/dl Albumin 3.9g/dl Globulin 3.70g/dl Albumin/Globulin Ratio 1.05 Lipase 193U/L Current Medications Medications (Trade) Dose Ordered Sig/Brian Route PRN Reason Start Time Stop Time Status Last Admin Dose Admin Sodium Chloride (NS) 500 ml @ 500 mls/hr Q1H STAT IV 06/19/17 01:06 06/19/17 02:05 DC 06/19/17 01:15 Hydromorphone HCl (Dilaudid) 1 mg ONCE STAT IV 06/19/17 01:06 06/19/17 01:08 DC 06/19/17 01:15 Ondansetron HCl (Zofran Inj) 4 mg ONCE STAT IV 06/19/17 01:06 06/19/17 01:08 DC 06/19/17 01:15 Ketorolac Tromethamine (Toradol) 30 mg ONCE STAT IV 06/19/17 03:24 06/19/17 03:36 DC 06/19/17 03:53 Hydromorphone HCl (Dilaudid) 1 mg ONCE STAT IV 06/19/17 05:48 06/19/17 05:49 DC Procedures/MDM Medical decision-makin-year-old female with drug-seeking behavior. No evidence of any acute pathology. When I informed the patient that she would be discharged home, patient began negotiating for more intravenous narcotics. When I offered p.o. narcotics, the patient became agitated and angry. At this point I informed her that no more intravenous narcotics will be given and she has already been given 2 doses of intravenous Dilaudid. Vision with his mother became verbally abusive towards myself and staff. Patient will be discharged home. Follow-up with primary care physician. Return in 8 hours. Departure Diagnosis: Primary Impression: Abdominal pain Abdominal location: generalized Qualified Code: R10.84 - Generalized abdominal pain Condition: Stable ADRIANNA KATZEL Zuleyka Jun 19, 2017 05:46
== END 2017-06-19 06:05 | disposition left against medical advice (07) ==
LOC: E/R 00:40
DX: R10.84 Generalized abdominal pain (principal); R10.2 Pelvic and perineal pain; N18.9 Chronic kidney disease, unspecified
CPT/HCPCS: 36415; 74176; 80053; 81001; 83690; 85025; 87086; 96374; 96375; J1170; J1885; J2405; J7040; Z7502

== ENCOUNTER 2017-09-24 23:43 | Emergency (ER) | END 2017-09-25 01:45 | disposition home or self-care (01) ==

== ENCOUNTER 2017-10-24 21:27 | Emergency (ER) | END 2017-10-25 04:15 | disposition home or self-care (01) ==

== ENCOUNTER 2018-04-01 12:07 | Emergency (ER) | END 2018-04-01 15:11 | disposition home or self-care (01) ==